=== PATIENT | female | born 1945 | race African-American/Black ===

== ENCOUNTER 2019-03-03 10:02 | Inpatient (IN) ==
[2019-03-03 12:33] LABS: Basophils % 0.4 % (0.0-0.8); Eosinophils % 0.3 % (0.00-10.9); Hematocrit 36.7 VOL% (35.7-47.0); Hemoglobin 11.7 GM/DL (12.0-16.0); Immature Granulocytes % 0.5 %; Immature Granulocytes Absolute 0.04 #; Lymphocytes # 2.3 10*3/uL (1.4-4.0); Lymphocytes % 31.1 % (21.3-54.2); Mean Corpuscular HGB Conc 31.9 GM/DL (32-36); Mean Corpuscular Volume 93.4 FL (87-102); Mean Platelet Volume 13.4 FL (9.6-12.0); Monocytes % 6.2 % (1.7-12.7); Neutrophils % 61.5 % (38.7-73.9); Platelet Count 127 T/CUMM (130-400); Red Blood Count 3.93 MC/CUMM (3.8-5.5); Red Cell Distribution Width 13.8 % (9.3-17.3); White Blood Count 7.3 T/CUMM (4-12)
[2019-03-03] MEDS ORDERED: ASPIRIN EC 325 MG TABLET PO STA (12:59)
[2019-03-03 13:00] LABS: Albumin 3.9 G/DL (3.4-5.0); Bilirubin,Total 0.9 MG/DL (0.2-1.0); Calcium 9.1 MG/DL (8.5-10.1); Osmolality,Calculated 285.5 MOS/KG (273-304); Total Protein 7.3 G/DL (6.4-8.3)
[2019-03-03] MEDS ORDERED: ASPIRIN 325 MG TABLET ONE (13:16)
[2019-03-03] MEDS ORDERED: GLUCAGON 1 MG VIAL IM PRN (14:08)
[2019-03-03] MEDS ORDERED: DEXTROSE 50% 25 GM/50 ML VIAL IV PRN (14:08)
[2019-03-03] MEDS ORDERED: ACETAMINOPHEN 325 MG TABLET PO PRN (14:08)
[2019-03-03] MEDS ORDERED: ENOXAPARIN 40 MG/0.4 ML SYRINGE SUBCUT SCH (14:30)
[2019-03-03] MEDS ORDERED: NITROGLYCERIN SL 0.4 MG TABLET SL PRN (15:33)
[2019-03-03] MEDS ORDERED: ENOXAPARIN 60 MG/0.6 ML SYRINGE SUBCUT ONE (15:45)
[2019-03-03] MEDS ORDERED: MAGNESIUM SULF RIDER 2 GM in PREMIX 1 EACH IV PRN (15:49)
[2019-03-03] MEDS ORDERED: POTASSIUM CHLORIDE RIDER 10 MEQ in PREMIX 1 EACH IV PRN (15:49)
[2019-03-03] MEDS ORDERED: hydrALAZINE 20 MG/1 ML VIAL IV PRN (15:52)
[2019-03-03] MEDS: INSULIN LISPRO 100 UNIT/ML SUBCUT SCH ×2 (17:23→20:43)
[2019-03-03] MEDS: CARVEDILOL 6.25 MG TABLET PO SCH ×2 (17:23→20:42)
[2019-03-03] MEDS: cloNIDine 0.1 MG TABLET PO SCH (20:43)
[2019-03-03] MEDS: SIMVASTATIN 40 MG TABLET PO SCH (20:43)
[2019-03-04 05:03] LABS: Basophils % 0.4 % (0.0-0.8); Eosinophils # 0.1 10*3/uL (0.0-0.87); Eosinophils % 1.6 % (0.00-10.9); Hematocrit 33.3 VOL% (35.7-47.0); Hemoglobin 10.9 GM/DL (12.0-16.0); Immature Granulocytes % 0.4 %; Immature Granulocytes Absolute 0.03 #; Lymphocytes # 3.1 10*3/uL (1.4-4.0); Lymphocytes % 44.8 % (21.3-54.2); Mean Corpuscular HGB Conc 32.7 GM/DL (32-36); Mean Corpuscular Volume 91.5 FL (87-102); Mean Platelet Volume 13.8 FL (9.6-12.0); Neutrophils % 42.8 % (38.7-73.9); Platelet Count 111 T/CUMM (130-400); Red Blood Count 3.64 MC/CUMM (3.8-5.5); Red Cell Distribution Width 13.9 % (9.3-17.3); White Blood Count 6.9 T/CUMM (4-12)
[2019-03-04 05:19] LABS: Calcium 8.9 MG/DL (8.5-10.1); Osmolality,Calculated 284.4 MOS/KG (273-304); Risk Ratio 3.68; VLDL CHOLESTEROL 50.4 MG/DL
[2019-03-04] MEDS: SODIUM CHLORIDE 0.45% 1,000 ML IV SCH ×2 (07:16→09:09)
[2019-03-04] MEDS: VALSARTAN/HCTZ 160-12.5 MG TABLET PO SCH (09:04)
[2019-03-04] MEDS: ALLOPURINOL 300 MG TABLET PO SCH (09:04)
[2019-03-04] MEDS: CARVEDILOL 6.25 MG TABLET PO SCH ×2 (09:05→21:06)
[2019-03-04] MEDS: INSULIN LISPRO 100 UNIT/ML SUBCUT SCH ×4 (09:05→22:35)
[2019-03-04] MEDS: PANTOPRAZOLE 40 MG TABLET PO SCH (09:05)
[2019-03-04] MEDS: amLODIPine 5 MG TABLET PO SCH (09:05)
[2019-03-04] MEDS: ASPIRIN EC 81 MG TABLET PO SCH (09:05)
[2019-03-04] MEDS: sitaGLIPtin 100 MG TABLET PO SCH (09:06)
[2019-03-04] MEDS ORDERED: DIAZEPAM 5 MG TABLET ONE (11:42)
[2019-03-04] MEDS ORDERED: diphenhydrAMINE CAP 50 MG CAPSULE ONE (11:42)
[2019-03-04] MEDS ORDERED: LIDOCAINE 1%/EPI INJ 20 ML VIAL ONE (11:49)
[2019-03-04] MEDS ORDERED: HEPARIN/NACL 0.9% 2 UNITS/ML 1,000 ML IV ONE (11:49)
[2019-03-04] MEDS ORDERED: DIAZEPAM 5 MG TABLET PO ONE (12:00)
[2019-03-04] MEDS ORDERED: diphenhydrAMINE CAP 25 MG CAPSULE PO ONE (12:00)
[2019-03-04] MEDS ORDERED: MIDAZOLAM 2 MG/2 ML VIAL ONE (12:03)
[2019-03-04] MEDS ORDERED: fentaNYL 100 MCG/2 ML VIAL ONE (12:03)
[2019-03-04] MEDS ORDERED: GLUCAGON 1 MG VIAL IM PRN (13:02)
[2019-03-04] MEDS ORDERED: DEXTROSE 10% 250 ML BAG IV PRN (13:02)
[2019-03-04] MEDS: ENOXAPARIN 100 MG/ML SYRINGE SUBCUT SCH (13:31)
[2019-03-04] MEDS: SIMVASTATIN 40 MG TABLET PO SCH (21:06)
[2019-03-04] MEDS: cloNIDine 0.1 MG TABLET PO SCH (21:06)
[2019-03-05] MEDS: ENOXAPARIN 100 MG/ML SYRINGE SUBCUT SCH ×2 (01:43→12:33)
[2019-03-05 05:08] LABS: Basophils % 0.4 % (0.0-0.8); Eosinophils # 0.1 10*3/uL (0.0-0.87); Eosinophils % 0.7 % (0.00-10.9); Hematocrit 32.9 VOL% (35.7-47.0); Hemoglobin 10.4 GM/DL (12.0-16.0); Immature Granulocytes % 0.5 %; Immature Granulocytes Absolute 0.04 #; Lymphocytes # 2.4 10*3/uL (1.4-4.0); Mean Corpuscular HGB Conc 31.6 GM/DL (32-36); Mean Corpuscular Volume 92.4 FL (87-102); Monocytes % 9.6 % (1.7-12.7); Neutrophils % 57.8 % (38.7-73.9); Platelet Count 114 T/CUMM (130-400); Red Blood Count 3.56 MC/CUMM (3.8-5.5); Red Cell Distribution Width 13.9 % (9.3-17.3); White Blood Count 7.6 T/CUMM (4-12)
[2019-03-05 05:37] LABS: Calcium 8.5 MG/DL (8.5-10.1); Osmolality,Calculated 284.5 MOS/KG (273-304)
[2019-03-05] MEDS: ALLOPURINOL 300 MG TABLET PO SCH (09:02)
[2019-03-05] MEDS: amLODIPine 5 MG TABLET PO SCH (09:02)
[2019-03-05] MEDS: ASPIRIN EC 81 MG TABLET PO SCH (09:02)
[2019-03-05] MEDS: sitaGLIPtin 100 MG TABLET PO SCH (09:02)
[2019-03-05] MEDS: INSULIN LISPRO 100 UNIT/ML SUBCUT SCH ×4 (09:02→21:46)
[2019-03-05] MEDS: VALSARTAN/HCTZ 160-12.5 MG TABLET PO SCH (09:02)
[2019-03-05] MEDS: PANTOPRAZOLE 40 MG TABLET PO SCH (09:03)
[2019-03-05] MEDS: CARVEDILOL 6.25 MG TABLET PO SCH ×2 (09:03→21:48)
[2019-03-05] MEDS: IBRUTINIB 280 MG PO SCH (09:06)
[2019-03-05] MEDS: SIMVASTATIN 40 MG TABLET PO SCH (21:46)
[2019-03-05] MEDS: cloNIDine 0.1 MG TABLET PO SCH (21:48)
[2019-03-06] MEDS: ENOXAPARIN 100 MG/ML SYRINGE SUBCUT SCH ×2 (03:34→13:08)
[2019-03-06 04:37] LABS: Basophils % 0.5 % (0.0-0.8); Eosinophils # 0.1 10*3/uL (0.0-0.87); Eosinophils % 1.4 % (0.00-10.9); Hematocrit 30.8 VOL% (35.7-47.0); Hemoglobin 9.8 GM/DL (12.0-16.0); Immature Granulocytes % 0.5 %; Immature Granulocytes Absolute 0.03 #; Lymphocytes # 2.5 10*3/uL (1.4-4.0); Lymphocytes % 38.1 % (21.3-54.2); Mean Corpuscular HGB Conc 31.8 GM/DL (32-36); Mean Corpuscular Volume 92.8 FL (87-102); Mean Platelet Volume 13.8 FL (9.6-12.0); Monocytes % 11.3 % (1.7-12.7); Neutrophils % 48.2 % (38.7-73.9); Platelet Count 111 T/CUMM (130-400); Red Blood Count 3.32 MC/CUMM (3.8-5.5); Red Cell Distribution Width 13.9 % (9.3-17.3); White Blood Count 6.5 T/CUMM (4-12)
[2019-03-06 05:01] LABS: Calcium 8.4 MG/DL (8.5-10.1); Osmolality,Calculated 282.5 MOS/KG (273-304)
[2019-03-06] MEDS: INSULIN LISPRO 100 UNIT/ML SUBCUT SCH ×5 (08:29→21:46)
[2019-03-06] MEDS: amLODIPine 5 MG TABLET PO SCH (08:30)
[2019-03-06] MEDS: CARVEDILOL 6.25 MG TABLET PO SCH ×2 (08:30→21:16)
[2019-03-06] MEDS: PANTOPRAZOLE 40 MG TABLET PO SCH (08:30)
[2019-03-06] MEDS: VALSARTAN/HCTZ 160-12.5 MG TABLET PO SCH (08:30)
[2019-03-06] MEDS: ASPIRIN EC 81 MG TABLET PO SCH (08:30)
[2019-03-06] MEDS: ALLOPURINOL 300 MG TABLET PO SCH (08:30)
[2019-03-06] MEDS: sitaGLIPtin 100 MG TABLET PO SCH (08:30)
[2019-03-06] MEDS: IBRUTINIB 280 MG PO SCH (08:32)
[2019-03-06] MEDS ORDERED: POTASSIUM CHLORIDE 20 MEQ TABLET PO ONE (09:00)
[2019-03-06] MEDS: cloNIDine 0.1 MG TABLET PO SCH (21:16)
[2019-03-06] MEDS: SIMVASTATIN 40 MG TABLET PO SCH (21:16)
[2019-03-07] MEDS: ENOXAPARIN 100 MG/ML SYRINGE SUBCUT SCH ×2 (02:15→15:21)
[2019-03-07 05:37] LABS: Basophils % 0.3 % (0.0-0.8); Eosinophils # 0.1 10*3/uL (0.0-0.87); Eosinophils % 1.2 % (0.00-10.9); Hematocrit 31.1 VOL% (35.7-47.0); Hemoglobin 10.1 GM/DL (12.0-16.0); Immature Granulocytes % 0.6 %; Immature Granulocytes Absolute 0.04 #; Lymphocytes # 2.5 10*3/uL (1.4-4.0); Lymphocytes % 35.6 % (21.3-54.2); Mean Corpuscular HGB Conc 32.5 GM/DL (32-36); Mean Platelet Volume 13.5 FL (9.6-12.0); Monocytes % 9.5 % (1.7-12.7); Neutrophils % 52.8 % (38.7-73.9); Platelet Count 113 T/CUMM (130-400); Red Blood Count 3.38 MC/CUMM (3.8-5.5); Red Cell Distribution Width 13.9 % (9.3-17.3); White Blood Count 6.9 T/CUMM (4-12)
[2019-03-07 06:17] LABS: Calcium 8.5 MG/DL (8.5-10.1); Osmolality,Calculated 286.4 MOS/KG (273-304)
[2019-03-07] MEDS: CARVEDILOL 6.25 MG TABLET PO SCH ×2 (08:49→21:40)
[2019-03-07] MEDS: ASPIRIN EC 81 MG TABLET PO SCH (08:49)
[2019-03-07] MEDS: ALLOPURINOL 300 MG TABLET PO SCH (08:49)
[2019-03-07] MEDS: amLODIPine 5 MG TABLET PO SCH (08:49)
[2019-03-07] MEDS: sitaGLIPtin 100 MG TABLET PO SCH (08:50)
[2019-03-07] MEDS: INSULIN LISPRO 100 UNIT/ML SUBCUT SCH ×4 (08:50→21:48)
[2019-03-07] MEDS: IBRUTINIB 280 MG PO SCH (08:52)
[2019-03-07] MEDS: VALSARTAN/HCTZ 160-12.5 MG TABLET PO SCH (09:35)
[2019-03-07] MEDS: PANTOPRAZOLE 40 MG TABLET PO SCH (09:36)
[2019-03-07] MEDS: SIMVASTATIN 40 MG TABLET PO SCH (21:40)
[2019-03-07] MEDS: cloNIDine 0.1 MG TABLET PO SCH (21:40)
[2019-03-08 06:25] LABS: Basophils % 0.6 % (0.0-0.8); Eosinophils # 0.1 10*3/uL (0.0-0.87); Eosinophils % 1.2 % (0.00-10.9); Hematocrit 32.2 VOL% (35.7-47.0); Hemoglobin 10.5 GM/DL (12.0-16.0); Immature Granulocytes % 0.4 %; Immature Granulocytes Absolute 0.03 #; Lymphocytes # 2.9 10*3/uL (1.4-4.0); Lymphocytes % 41.4 % (21.3-54.2); Mean Corpuscular HGB Conc 32.6 GM/DL (32-36); Mean Corpuscular Volume 91.7 FL (87-102); Mean Platelet Volume 14.1 FL (9.6-12.0); Monocytes % 10.6 % (1.7-12.7); Neutrophils % 45.8 % (38.7-73.9); Platelet Count 123 T/CUMM (130-400); Red Blood Count 3.51 MC/CUMM (3.8-5.5); Red Cell Distribution Width 14.1 % (9.3-17.3); White Blood Count 6.9 T/CUMM (4-12)
[2019-03-08] MEDS: ENOXAPARIN 100 MG/ML SYRINGE SUBCUT SCH ×2 (06:26→13:49)
[2019-03-08 06:52] LABS: Calcium 8.5 MG/DL (8.5-10.1); Osmolality,Calculated 285.5 MOS/KG (273-304)
[2019-03-08] MEDS: INSULIN LISPRO 100 UNIT/ML SUBCUT SCH ×4 (08:40→21:39)
[2019-03-08] MEDS: CARVEDILOL 6.25 MG TABLET PO SCH ×2 (08:41→21:38)
[2019-03-08] MEDS: PANTOPRAZOLE 40 MG TABLET PO SCH (08:41)
[2019-03-08] MEDS: ASPIRIN EC 81 MG TABLET PO SCH (08:41)
[2019-03-08] MEDS: sitaGLIPtin 100 MG TABLET PO SCH (08:41)
[2019-03-08] MEDS: ALLOPURINOL 300 MG TABLET PO SCH (08:41)
[2019-03-08] MEDS: VALSARTAN/HCTZ 160-12.5 MG TABLET PO SCH (08:41)
[2019-03-08] MEDS: amLODIPine 5 MG TABLET PO SCH (08:42)
[2019-03-08] MEDS: IBRUTINIB 280 MG PO SCH (08:44)
[2019-03-08] MEDS: cloNIDine 0.1 MG TABLET PO SCH (21:38)
[2019-03-08] MEDS: SIMVASTATIN 40 MG TABLET PO SCH (21:38)
[2019-03-09 05:33] LABS: Basophils % 0.5 % (0.0-0.8); Eosinophils # 0.1 10*3/uL (0.0-0.87); Eosinophils % 1.7 % (0.00-10.9); Hematocrit 30.8 VOL% (35.7-47.0); Hemoglobin 10.2 GM/DL (12.0-16.0); Immature Granulocytes % 0.3 %; Immature Granulocytes Absolute 0.02 #; Lymphocytes # 2.1 10*3/uL (1.4-4.0); Lymphocytes % 36.3 % (21.3-54.2); Mean Corpuscular HGB Conc 33.1 GM/DL (32-36); Mean Corpuscular Volume 92.5 FL (87-102); Mean Platelet Volume 13.6 FL (9.6-12.0); Monocytes % 11.6 % (1.7-12.7); Neutrophils % 49.6 % (38.7-73.9); Platelet Count 125 T/CUMM (130-400); Red Blood Count 3.33 MC/CUMM (3.8-5.5); Red Cell Distribution Width 13.8 % (9.3-17.3); White Blood Count 5.8 T/CUMM (4-12)
[2019-03-09 05:59] LABS: Calcium 8.7 MG/DL (8.5-10.1); Osmolality,Calculated 285.5 MOS/KG (273-304)
[2019-03-09] MEDS ORDERED: CEFUROXIME INJ 1,500 MG in SYRINGE 1 EACH IV ONE (08:17)
[2019-03-09] MEDS ORDERED: DEXTROSE 50% 25 GM/50 ML VIAL IV PRN (08:17)
[2019-03-09] MEDS ORDERED: GLUCAGON 1 MG VIAL IM PRN (08:17)
[2019-03-09] MEDS: INSULIN LISPRO 100 UNIT/ML SUBCUT SCH ×4 (08:34→21:00)
[2019-03-09] MEDS: ALLOPURINOL 300 MG TABLET PO SCH (08:39)
[2019-03-09] MEDS: VALSARTAN/HCTZ 160-12.5 MG TABLET PO SCH (08:39)
[2019-03-09] MEDS: PANTOPRAZOLE 40 MG TABLET PO SCH (08:39)
[2019-03-09] MEDS: sitaGLIPtin 100 MG TABLET PO SCH (08:39)
[2019-03-09] MEDS: amLODIPine 5 MG TABLET PO SCH (08:39)
[2019-03-09] MEDS: CHLORHEXIDINE 4% SOLN 118 ML BOTTLE TOP SCH ×3 (08:39→21:06)
[2019-03-09] MEDS: ASPIRIN EC 81 MG TABLET PO SCH (08:39)
[2019-03-09] MEDS: CARVEDILOL 6.25 MG TABLET PO SCH ×2 (08:39→21:00)
[2019-03-09] MEDS: IBRUTINIB 280 MG PO SCH (08:41)
[2019-03-09] MEDS: SODIUM CHLORIDE 0.9% 1,000 ML IV SCH (08:42)
[2019-03-09 08:49] LABS: ABG Base Excess -0.1 MMOL/L (-2.5-2.5); ABG HCO3 24.3 MMOL/L (20-26); ABG PCO2 37.4 MM HG (35-48); ABG PH 7.418 (7.35-7.45); ABG TCO2 21.8 MMOL/L (23-27); Allen Test Positive; Pt O2 Delivery Device Room Air
[2019-03-09] MEDS: CHLORHEXIDINE 0.12% ORAL RINSE 60 ML BOTTLE SWISH/SPIT SCH ×2 (11:14→21:06)
[2019-03-09] MEDS ORDERED: NF- (Dulaglutide [Trulicity] 1.5 MG) SUBCUT SCH (15:56)
[2019-03-09] MEDS: cloNIDine 0.1 MG TABLET PO SCH (21:00)
[2019-03-09] MEDS: SIMVASTATIN 40 MG TABLET PO SCH (21:00)
[2019-03-10] MEDS ORDERED: VANCOMYCIN 1,000 MG VIAL ONE (04:21)
[2019-03-10] MEDS ORDERED: PAPAVERINE 60 MG/2 ML VIAL ONE (04:21)
[2019-03-10] MEDS ORDERED: HEPARIN/NACL 0.9% 2 UNITS/ML 500 ML IV ONE (06:01)
[2019-03-10] MEDS ORDERED: EPINEPHrine 1 MG/ML VIAL ONE (06:02)
[2019-03-10] MEDS ORDERED: MIDAZOLAM 10 MG/2 ML VIAL ONE (06:02)
[2019-03-10 06:24] LABS: Osmolality,Calculated 282.7 MOS/KG (273-304)
[2019-03-10] MEDS ORDERED: DIAZEPAM 5 MG TABLET PO ONE (06:30)
[2019-03-10] MEDS ORDERED: FAMOTIDINE 20 MG TABLET PO ONE (06:30)
[2019-03-10] MEDS ORDERED: CEFUROXIME INJ 1,500 MG in SYRINGE 1 EACH IV ONE (07:00)
[2019-03-10 07:42] LABS: ABG Base Excess -0.2 MMOL/L (-2.5-2.5); ABG HCO3 24.3 MMOL/L (20-26); ABG PCO2 38.8 MM HG (35-48); ABG PH 7.406 (7.35-7.45); ABG TCO2 22.2 MMOL/L (23-27); Glucose Heart Surgery 169 MG/DL (74-106); Hematocrit Heart Surgery 30.5 PERCENT (37-47); Hemoglobin Heart Surgery 9.9 G/DL (12.0-16.0); Ionized Calcium Arterial 1.18 MMOL/L (1.21-1.46); PCO2 Patient Temp Arterial 38.8 MMHG; PH Patient Temp Arterial 7.406; Patient Temperature 37 CELCIUS; Potassium Heart/CVR 3.7 MMOL/L (3.5-5.1); Sodium Heart/CVR 139 MMOL/L (135-145)
[2019-03-10 08:05] LABS: Apearance,Urine CLEAR (Clear); Bacteria,Urine Occasional /HPF (Few); Bilirubin,Urine Negative (Negative); Blood, Urine Moderate mg/dL (Negative); Glucose,Urine (UA) Negative (Negative); Ketones,Urine Negative (Negative); Nitrite,Urine Negative (Negative); Protein,Urine Negative; RBC,Urine 1 /HPF (0-4); Squamous Epithelial Cell,Urine Occasional /HPF (0-10); Urine Color Straw (Yellow); Urine Specific Gravity 1.006 (1.001-1.035); Urine Urobilinogen < 2.0 EU/DL (0.2-1.0); WBC,Urine <1 /HPF (0-6)
[2019-03-10 09:16] LABS: PCO2 Patient Temp Venous 31.5 MM HG; PH Patient Temp Venous 7.488; Potassium Heart/CVR 4.3 MMOL/L (3.5-5.1); VBG Base Excess 0.8 MEQ/L (0-4); VBG Oxygen Saturation 78.6 %; VBG PCO2 34.7 MMHG (41-51); VBG PH 7.458; VBG PO2 40.2 MMHG (17-40)
[2019-03-10 09:18] LABS: Hemoglobin Heart Surgery 6.4 G/DL (12.0-16.0)
[2019-03-10] MEDS ORDERED: PHENYLEPHRINE DRIP 40 MG/250 ML PREMIX IV ONE (09:18)
[2019-03-10 09:50] LABS: Hematocrit Heart Surgery 21.8 PERCENT (37-47); PCO2 Patient Temp Venous 28.1 MM HG; PH Patient Temp Venous 7.526; PO2 Patient Temp Venous 36.4 MM HG; Potassium Heart/CVR 4.1 MMOL/L (3.5-5.1); VBG HCO3 25.1 MEQ/L (24-28); VBG Oxygen Saturation 84.6 %; VBG PCO2 32.5 MMHG (41-51); VBG PH 7.481; VBG PO2 44.7 MMHG (17-40)
[2019-03-10 10:20] LABS: Hematocrit Heart Surgery 23.4 PERCENT (37-47); Hemoglobin Heart Surgery 7.5 G/DL (12.0-16.0); PCO2 Patient Temp Venous 33.9 MM HG; PH Patient Temp Venous 7.451; PO2 Patient Temp Venous 34.8 MM HG; Potassium Heart/CVR 4.6 MMOL/L (3.5-5.1); VBG HCO3 24.1 MEQ/L (24-28); VBG Oxygen Saturation 68.9 %; VBG PCO2 33.9 MMHG (41-51); VBG PH 7.451; VBG PO2 34.8 MMHG (17-40)
[2019-03-10] MEDS ORDERED: ALBUMIN 25% 25 GM/100 ML VIAL IV ONE (10:38)
[2019-03-10] MEDS ORDERED: SODIUM BICARBONATE 50 MEQ/50 ML VIAL IV ONE (10:38)
[2019-03-10] MEDS ORDERED: MANNITOL 100 GM/500 ML BAG IV ONE (10:38)
[2019-03-10] MEDS ORDERED: DEXTROSE 5% KCL 20 MEQ 20 MEQ/1,000 ML BAG IV ONE (10:38)
[2019-03-10] MEDS ORDERED: PROTAMINE SULFATE 50 MG/5 ML VIAL IV ONE (10:39)
[2019-03-10] MEDS ORDERED: PROTAMINE SULFATE 250 MG/25 ML VIAL IV ONE (10:39)
[2019-03-10] MEDS ORDERED: methylPREDNISolone SOD SUC 1,000 MG/8 ML VIAL ONE (10:39)
[2019-03-10] MEDS ORDERED: HEPARIN 10,000 UNIT/10 ML VIAL ONE (10:39)
[2019-03-10] MEDS ORDERED: FUROSEMIDE 20 MG/2 ML VIAL ONE (10:39)
[2019-03-10] MEDS ORDERED: MAGNESIUM SULFATE 5 GM/10 ML VIAL IV ONE (10:39)
[2019-03-10] MEDS ORDERED: POTASSIUM CHLORIDE 20 MEQ/10 ML VIAL ONE (10:39)
[2019-03-10 10:53] LABS: ABG Base Excess -1.8 MMOL/L (-2.5-2.5); ABG PCO2 35.1 MM HG (35-48); ABG PH 7.412 (7.35-7.45); ABG TCO2 20.6 MMOL/L (23-27); Glucose Heart Surgery 292 MG/DL (74-106); Hematocrit Heart Surgery 27.5 PERCENT (37-47); Hemoglobin Heart Surgery 8.9 G/DL (12.0-16.0); Ionized Calcium Arterial 1.22 MMOL/L (1.21-1.46); PCO2 Patient Temp Arterial 35.1 MMHG; PH Patient Temp Arterial 7.412; Patient Temperature 37 CELCIUS; Potassium Heart/CVR 4.1 MMOL/L (3.5-5.1); Sodium Heart/CVR 134 MMOL/L (135-145)
[2019-03-10] MEDS ORDERED: VECURONIUM 10 MG VIAL IV ONE (11:48)
[2019-03-10] MEDS ORDERED: PHENYLEPHRINE DRIP 20 MG/250 ML PREMIX IV ONE (11:48)
[2019-03-10] MEDS ORDERED: CALCIUM CHLORIDE 1,000 MG/10 ML VIAL IV ONE (11:48)
[2019-03-10] MEDS ORDERED: SODIUM CHLORIDE 0.9% 100 ML IV ONE (11:49)
[2019-03-10] MEDS ORDERED: SODIUM CHLORIDE 0.9% 250 ML IV ONE (11:49)
[2019-03-10] MEDS ORDERED: AMINOCAPROIC ACID 5,000 MG/20 ML VIAL ONE (11:49)
[2019-03-10] MEDS ORDERED: SODIUM CHLORIDE 0.9% 1,000 ML IV ONE (11:49)
[2019-03-10] MEDS ORDERED: LACTATED RINGERS 1,000 ML IV ONE (11:49)
[2019-03-10] MEDS ORDERED: ALBUMIN 5% 12.5 GM in PREMIX 1 EACH IV PRN (11:50)
[2019-03-10] MEDS ORDERED: MIDAZOLAM 10 MG/2 ML VIAL IV PRN (11:50)
[2019-03-10] MEDS ORDERED: MAGNESIUM SULF RIDER 4 GM in PREMIX 1 EACH IV PRN (11:50)
[2019-03-10] MEDS ORDERED: CALCIUM CHLORIDE 1,000 MG/10 ML SYRINGE IV PRN (11:50)
[2019-03-10] MEDS ORDERED: MAGNESIUM SULF RIDER 2 GM in PREMIX 1 EACH IV PRN (11:50)
[2019-03-10] MEDS ORDERED: PHENYLEPHRINE DRIP 40 MG/250 ML PREMIX IV PRN (11:50)
[2019-03-10] MEDS ORDERED: VECURONIUM 10 MG VIAL IV PRN ×2 (11:50)
[2019-03-10] MEDS ORDERED: DEXTROSE 50% 25 GM/50 ML VIAL IV PRN ×2 (11:50)
[2019-03-10] MEDS ORDERED: MORPHINE 10 MG/1 ML VIAL IV PRN (11:50)
[2019-03-10] MEDS ORDERED: ACETAMINOPHEN 650 MG SUPP RECTAL PRN (11:50)
[2019-03-10] MEDS ORDERED: INSULIN REGULAR 100 UNIT/ML IV ONE (11:50)
[2019-03-10] MEDS ORDERED: NITROPRUSSIDE 100 MG in DEXTROSE 5% 250 ML IV PRN (11:50)
[2019-03-10] MEDS ORDERED: MORPHINE 4 MG/1 ML VIAL IV PRN (11:50)
[2019-03-10] MEDS ORDERED: MIDAZOLAM 2 MG/2 ML VIAL IV PRN (11:50)
[2019-03-10] MEDS ORDERED: ONDANSETRON 4 MG/2 ML VIAL IV PRN (11:50)
[2019-03-10] MEDS ORDERED: LACTATED RINGERS 250 ML IV PRN (11:50)
[2019-03-10] MEDS: SODIUM CHLORIDE 0.9% 1,000 ML IV SCH (11:51)
[2019-03-10] MEDS: INSULIN LISPRO 100 UNIT/ML SUBCUT SCH (11:51)
[2019-03-10] MEDS: sitaGLIPtin 100 MG TABLET PO SCH (11:52)
[2019-03-10] MEDS: VALSARTAN/HCTZ 160-12.5 MG TABLET PO SCH (11:52)
[2019-03-10] MEDS: amLODIPine 5 MG TABLET PO SCH (11:52)
[2019-03-10] MEDS: IBRUTINIB 280 MG PO SCH (11:52)
[2019-03-10] MEDS: CARVEDILOL 6.25 MG TABLET PO SCH (11:52)
[2019-03-10] MEDS: ASPIRIN EC 81 MG TABLET PO SCH (11:52)
[2019-03-10] MEDS: ALLOPURINOL 300 MG TABLET PO SCH (11:53)
[2019-03-10] MEDS: CHLORHEXIDINE 0.12% ORAL RINSE 60 ML BOTTLE SWISH/SPIT SCH (11:53)
[2019-03-10] MEDS: PANTOPRAZOLE 40 MG TABLET PO SCH (11:53)
[2019-03-10] MEDS ORDERED: SODIUM CHLORIDE 0.45% 1,000 ML IV SCH ×2 (12:00)
[2019-03-10 12:05] LABS: Basophils % 0.2 % (0.0-0.8); Eosinophils # 0.1 10*3/uL (0.0-0.87); Eosinophils % 0.4 % (0.00-10.9); Hematocrit 28.7 VOL% (35.7-47.0); Hemoglobin 9.3 GM/DL (12.0-16.0); Immature Granulocytes Absolute 0.12 #; Lymphocytes # 1.5 10*3/uL (1.4-4.0); Lymphocytes % 12.5 % (21.3-54.2); Mean Corpuscular HGB Conc 32.4 GM/DL (32-36); Mean Corpuscular Volume 90.8 FL (87-102); Mean Platelet Volume 13.3 FL (9.6-12.0); Monocytes % 5.1 % (1.7-12.7); Neutrophils % 80.8 % (38.7-73.9); Platelet Count 110 T/CUMM (130-400); Red Blood Count 3.16 MC/CUMM (3.8-5.5); Red Cell Distribution Width 13.6 % (9.3-17.3)
[2019-03-10 12:06] LABS: ABG Base Excess -2.1 MMOL/L (-2.5-2.5); ABG HCO3 22.6 MMOL/L (20-26); ABG Oxygen Saturation 99.5 % (95-100); ABG PH 7.407 (7.35-7.45); ABG TCO2 20.1 MMOL/L (23-27); Glucose Heart Surgery 277 MG/DL (74-106); Hematocrit Heart Surgery 29.8 PERCENT (37-47); Hemoglobin Heart Surgery 9.6 G/DL (12.0-16.0); Potassium Heart/CVR 3.9 MMOL/L (3.5-5.1)
[2019-03-10 12:14] LABS: PT Patient Result 11.3 SECS; Partial Thromboplastin Time 24.7 SECS (0-40)
[2019-03-10 12:29] LABS: Albumin 3.1 G/DL (3.4-5.0); Bilirubin,Total 1.3 MG/DL (0.2-1.0); Osmolality,Calculated 289.7 MOS/KG (273-304)
[2019-03-10] MEDS: POTASSIUM CHLORIDE RIDER 20 MEQ in PREMIX 1 EACH IV PRN ×5 (12:52→23:14)
[2019-03-10] MEDS: KETOROLAC 30 MG/1 ML VIAL IV SCH ×2 (12:55→17:12)
[2019-03-10 13:00] LABS: CKMB % 4.9 %
[2019-03-10 13:06] LABS: Troponin I 4.63 NG/ML (0.00-0.045)
[2019-03-10] MEDS: INSULIN REGULAR DRIP 100 ML IV SCH ×2 (13:25→22:54)
[2019-03-10] MEDS: POTASSIUM CHLORIDE RIDER 10 MEQ in PREMIX 1 EACH IV PRN ×2 (13:29→15:39)
[2019-03-10] MEDS: LACTATED RINGERS 1,000 ML IV PRN ×3 (13:32→17:00)
[2019-03-10 14:19] LABS: ABG Base Excess -1.9 MMOL/L (-2.5-2.5); ABG HCO3 22.8 MMOL/L (20-26); ABG Oxygen Saturation 99.1 % (95-100); ABG PCO2 31.9 MM HG (35-48); ABG PH 7.436 (7.35-7.45); ABG TCO2 19.1 MMOL/L (23-27); Glucose Heart Surgery 294 MG/DL (74-106); Hematocrit Heart Surgery 35.4 PERCENT (37-47); Hemoglobin Heart Surgery 11.5 G/DL (12.0-16.0); Potassium Heart/CVR 3.9 MMOL/L (3.5-5.1)
[2019-03-10] MEDS: INSULIN REGULAR 100 UNIT/ML IV PRN ×2 (14:31→21:20)
[2019-03-10 16:57] LABS: ABG HCO3 21.9 MMOL/L (20-26); ABG Oxygen Saturation 98.9 % (95-100); ABG PCO2 35.5 MM HG (35-48); ABG PH 7.389 (7.35-7.45); ABG TCO2 19.3 MMOL/L (23-27); Glucose Heart Surgery 210 MG/DL (74-106); Hematocrit Heart Surgery 32.8 PERCENT (37-47); Hemoglobin Heart Surgery 10.6 G/DL (12.0-16.0); Potassium Heart/CVR 3.7 MMOL/L (3.5-5.1)
[2019-03-10 19:28] LABS: ABG Base Excess -2.6 MMOL/L (-2.5-2.5); ABG HCO3 22.3 MMOL/L (20-26); ABG Oxygen Saturation 98.9 % (95-100); ABG PCO2 35.1 MM HG (35-48); ABG PH 7.398 (7.35-7.45); ABG TCO2 19.3 MMOL/L (23-27); Glucose Heart Surgery 159 MG/DL (74-106); Hematocrit Heart Surgery 35.3 PERCENT (37-47); Hemoglobin Heart Surgery 11.5 G/DL (12.0-16.0)
[2019-03-10] MEDS: CEFUROXIME INJ 1,500 MG in SYRINGE 1 EACH IV SCH (19:31)
[2019-03-10 19:49] LABS: CKMB % 3.6 %
[2019-03-10] MEDS ORDERED: CHLORHEXIDINE 0.12% ORAL RINSE 60 ML BOTTLE SWISH/SPIT SCH (21:00)
[2019-03-11] MEDS ORDERED: FUROSEMIDE 40 MG/4 ML VIAL IV ONE (00:01)
[2019-03-11] MEDS: KETOROLAC 30 MG/1 ML VIAL IV SCH ×2 (00:21→06:32)
[2019-03-11 03:10] LABS: Basophils % 0.1 % (0.0-0.8); Hemoglobin 10.5 GM/DL (12.0-16.0); Immature Granulocytes % 0.6 %; Immature Granulocytes Absolute 0.11 #; Lymphocytes # 1.9 10*3/uL (1.4-4.0); Lymphocytes % 10.7 % (21.3-54.2); Mean Corpuscular HGB Conc 32.8 GM/DL (32-36); Mean Corpuscular Volume 88.6 FL (87-102); Neutrophils % 83.6 % (38.7-73.9); Platelet Count 142 T/CUMM (130-400); Red Blood Count 3.61 MC/CUMM (3.8-5.5); Red Cell Distribution Width 15.9 % (9.3-17.3); White Blood Count 17.7 T/CUMM (4-12)
[2019-03-11 03:16] LABS: ABG Base Excess -1.3 MMOL/L (-2.5-2.5); ABG HCO3 23.4 MMOL/L (20-26); ABG TCO2 19.3 MMOL/L (23-27); Glucose Heart Surgery 109 MG/DL (74-106); Potassium Heart/CVR 4.2 MMOL/L (3.5-5.1)
[2019-03-11 03:35] LABS: Albumin 3.2 G/DL (3.4-5.0); Bilirubin,Direct 0.25 MG/DL (0.0-0.20); CKMB % 2.4 %; Calcium 8.5 MG/DL (8.5-10.1); Osmolality,Calculated 285.3 MOS/KG (273-304); Total Protein 5.9 G/DL (6.4-8.3)
[2019-03-11 03:36] LABS: Troponin I 3.27 NG/ML (0.00-0.045)
[2019-03-11 04:16] LABS: ABG Base Excess -0.8 MMOL/L (-2.5-2.5); ABG HCO3 24.2 MMOL/L (20-26); ABG Oxygen Saturation 95.7 % (95-100); ABG PCO2 41.2 MM HG (35-48); ABG PH 7.386 (7.35-7.45); ABG PO2 83.5 MM HG (80-95); ABG TCO2 25.4 MMOL/L (23-27); Glucose Heart Surgery 89 MG/DL (74-106); Hemoglobin Heart Surgery 11.4 G/DL (12.0-16.0)
[2019-03-11] MEDS: POTASSIUM CHLORIDE RIDER 20 MEQ in PREMIX 1 EACH IV PRN (04:48)
[2019-03-11 05:13] LABS: ABG Base Excess -1.6 MMOL/L (-2.5-2.5); ABG HCO3 23.1 MMOL/L (20-26); ABG Oxygen Saturation 97.7 % (95-100); ABG PCO2 42.4 MM HG (35-48); ABG PH 7.358 (7.35-7.45); ABG TCO2 21.6 MMOL/L (23-27); Glucose Heart Surgery 91 MG/DL (74-106); Hematocrit Heart Surgery 32.3 PERCENT (37-47); Hemoglobin Heart Surgery 10.4 G/DL (12.0-16.0); Potassium Heart/CVR 4.4 MMOL/L (3.5-5.1)
[2019-03-11] MEDS ORDERED: MAGNESIUM SULF RIDER 4 GM in PREMIX 1 EACH IV PRN (07:35)
[2019-03-11] MEDS ORDERED: GLUCAGON 1 MG VIAL IM PRN ×2 (07:35)
[2019-03-11] MEDS ORDERED: oxyCODONE/ACETAMINOPHEN 5-325 MG TABLET PO PRN (07:35)
[2019-03-11] MEDS ORDERED: ONDANSETRON 4 MG/2 ML VIAL IV PRN (07:35)
[2019-03-11] MEDS ORDERED: ACETAMINOPHEN 325 MG TABLET PO PRN (07:35)
[2019-03-11] MEDS ORDERED: MORPHINE 4 MG/1 ML VIAL IV PRN (07:35)
[2019-03-11] MEDS ORDERED: MAGNESIUM SULF RIDER 2 GM in PREMIX 1 EACH IV PRN (07:35)
[2019-03-11] MEDS ORDERED: ALUMINUM/MAGNES/SIMETH MAX STR 30 ML UDCUP PO PRN (07:35)
[2019-03-11] MEDS ORDERED: DEXTROSE 50% 25 GM/50 ML VIAL IV PRN ×2 (07:35)
[2019-03-11] MEDS: INSULIN REGULAR 100 UNIT/ML SUBCUT SCH ×4 (08:00→21:45)
[2019-03-11] MEDS: CEFUROXIME INJ 1,500 MG in SYRINGE 1 EACH IV SCH ×2 (08:27→23:06)
[2019-03-11] MEDS: ASPIRIN EC 325 MG TABLET PO SCH (08:28)
[2019-03-11] MEDS: CARVEDILOL 3.125 MG TABLET PO SCH ×2 (08:28→21:11)
[2019-03-11] MEDS: ALLOPURINOL 300 MG TABLET PO SCH (08:28)
[2019-03-11] MEDS: DOCUSATE SODIUM 100 MG CAPSULE PO SCH (08:28)
[2019-03-11] MEDS: sitaGLIPtin 100 MG TABLET PO SCH (08:28)
[2019-03-11] MEDS: SODIUM CHLOR 0.45% KCL 20 MEQ 20 MEQ/1,000 ML BAG IV SCH (08:29)
[2019-03-11] MEDS: PANTOPRAZOLE 40 MG TABLET PO SCH (08:29)
[2019-03-11] MEDS: ASCORBIC ACID 500 MG TABLET PO SCH ×2 (08:29→21:11)
[2019-03-11] MEDS: FERROUS SULFATE 325 MG TABLET PO SCH (08:29)
[2019-03-11] MEDS: CHLORHEXIDINE 0.12% ORAL RINSE 60 ML BOTTLE SWISH/SPIT SCH ×2 (08:29→21:11)
[2019-03-11] MEDS ORDERED: VALSARTAN/HCTZ 160-12.5 MG TABLET PO SCH (09:00)
[2019-03-11] MEDS: KETOROLAC 15 MG/1 ML VIAL IV SCH ×2 (11:52→19:01)
[2019-03-11] MEDS: ZALEPLON 5 MG CAPSULE PO PRN (21:11)
[2019-03-11] MEDS: cloNIDine 0.1 MG TABLET PO SCH (21:11)
[2019-03-11] MEDS: SIMVASTATIN 40 MG TABLET PO SCH (21:11)
[2019-03-12] MEDS: KETOROLAC 15 MG/1 ML VIAL IV SCH ×2 (01:29→10:30)
[2019-03-12] MEDS: INSULIN REGULAR 100 UNIT/ML SUBCUT SCH ×6 (01:39→23:20)
[2019-03-12 05:06] LABS: Basophils % 0.1 % (0.0-0.8); Hemoglobin 8.8 GM/DL (12.0-16.0); Immature Granulocytes % 0.6 %; Lymphocytes # 1.5 10*3/uL (1.4-4.0); Lymphocytes % 9.1 % (21.3-54.2); Mean Corpuscular HGB Conc 31.4 GM/DL (32-36); Mean Corpuscular Volume 91.2 FL (87-102); Mean Platelet Volume 14.1 FL (9.6-12.0); Monocytes % 10.3 % (1.7-12.7); NRBC # 0.02 10*3/uL; Neutrophils % 79.9 % (38.7-73.9); Platelet Count 120 T/CUMM (130-400); Red Blood Count 3.07 MC/CUMM (3.8-5.5); Red Cell Distribution Width 16.2 % (9.3-17.3); White Blood Count 16.2 T/CUMM (4-12)
[2019-03-12] MEDS ORDERED: FUROSEMIDE 40 MG/4 ML VIAL IV ONE (06:00)
[2019-03-12 06:09] LABS: Albumin 2.9 G/DL (3.4-5.0); Bilirubin,Direct 0.24 MG/DL (0.0-0.20); Bilirubin,Indirect 0.7 MG/DL (0.0-1.0); Bilirubin,Total 0.9 MG/DL (0.2-1.0); CKMB % 0.8 %; Calcium 8.4 MG/DL (8.5-10.1); Osmolality,Calculated 293.5 MOS/KG (273-304)
[2019-03-12 06:13] LABS: Troponin I 3.26 NG/ML (0.00-0.045)
[2019-03-12] MEDS: ALLOPURINOL 300 MG TABLET PO SCH (09:34)
[2019-03-12] MEDS: PANTOPRAZOLE 40 MG TABLET PO SCH (09:35)
[2019-03-12] MEDS: ASPIRIN EC 325 MG TABLET PO SCH (09:35)
[2019-03-12] MEDS: ASCORBIC ACID 500 MG TABLET PO SCH ×2 (09:36→21:57)
[2019-03-12] MEDS: FERROUS SULFATE 325 MG TABLET PO SCH (09:36)
[2019-03-12] MEDS: sitaGLIPtin 100 MG TABLET PO SCH (09:37)
[2019-03-12] MEDS: DOCUSATE SODIUM 100 MG CAPSULE PO SCH (09:37)
[2019-03-12] MEDS: CARVEDILOL 3.125 MG TABLET PO SCH ×2 (09:37→21:56)
[2019-03-12] MEDS: CHLORHEXIDINE 0.12% ORAL RINSE 60 ML BOTTLE SWISH/SPIT SCH ×2 (10:15→21:56)
[2019-03-12] MEDS: SODIUM CHLOR 0.45% KCL 20 MEQ 20 MEQ/1,000 ML BAG IV SCH (10:30)
[2019-03-12] MEDS: cloNIDine 0.1 MG TABLET PO SCH (21:56)
[2019-03-12] MEDS: SIMVASTATIN 40 MG TABLET PO SCH (21:56)
[2019-03-13] MEDS: INSULIN REGULAR 100 UNIT/ML SUBCUT SCH ×5 (00:55→21:36)
[2019-03-13 06:40] LABS: Basophils % 0.2 % (0.0-0.8); Eosinophils # 0.2 10*3/uL (0.0-0.87); Eosinophils % 1.2 % (0.00-10.9); Hematocrit 27.9 VOL% (35.7-47.0); Hemoglobin 8.8 GM/DL (12.0-16.0); Immature Granulocytes % 0.7 %; Immature Granulocytes Absolute 0.09 #; Lymphocytes # 2.3 10*3/uL (1.4-4.0); Lymphocytes % 18.6 % (21.3-54.2); Mean Corpuscular HGB Conc 31.5 GM/DL (32-36); Mean Platelet Volume 13.7 FL (9.6-12.0); Monocytes % 13.3 % (1.7-12.7); NRBC # 0.02 10*3/uL; Platelet Count 131 T/CUMM (130-400); Red Cell Distribution Width 15.9 % (9.3-17.3); White Blood Count 12.1 T/CUMM (4-12)
[2019-03-13 07:18] LABS: Albumin 2.8 G/DL (3.4-5.0); Bilirubin,Direct 0.25 MG/DL (0.0-0.20); Bilirubin,Indirect 0.9 MG/DL (0.0-1.0); Bilirubin,Total 1.1 MG/DL (0.2-1.0); CKMB % 0.7 %; Calcium 8.5 MG/DL (8.5-10.1); Osmolality,Calculated 293.5 MOS/KG (273-304); Total Protein 6.2 G/DL (6.4-8.3)
[2019-03-13 07:21] LABS: Troponin I 1.22 NG/ML (0.00-0.045)
[2019-03-13] MEDS: sitaGLIPtin 100 MG TABLET PO SCH (08:50)
[2019-03-13] MEDS: ASCORBIC ACID 500 MG TABLET PO SCH ×2 (08:50→21:34)
[2019-03-13] MEDS: CARVEDILOL 3.125 MG TABLET PO SCH ×2 (08:50→21:35)
[2019-03-13] MEDS: PANTOPRAZOLE 40 MG TABLET PO SCH (08:51)
[2019-03-13] MEDS: ASPIRIN EC 325 MG TABLET PO SCH (08:51)
[2019-03-13] MEDS: FERROUS SULFATE 325 MG TABLET PO SCH (08:51)
[2019-03-13] MEDS: ALLOPURINOL 300 MG TABLET PO SCH (08:51)
[2019-03-13] MEDS: DOCUSATE SODIUM 100 MG CAPSULE PO SCH (08:51)
[2019-03-13] MEDS: LISINOPRIL 5 MG TABLET PO SCH (09:45)
[2019-03-13] MEDS: FUROSEMIDE 40 MG TABLET PO SCH (09:45)
[2019-03-13] MEDS: CHLORHEXIDINE 0.12% ORAL RINSE 60 ML BOTTLE SWISH/SPIT SCH ×2 (09:46→21:38)
[2019-03-13] MEDS ORDERED: AMIODARONE INJ 150 MG in DEXTROSE 5% 100 ML IV ONE (15:22)
[2019-03-13] MEDS ORDERED: dilTIAZem Drip 125 MG/125 ML PREMIX IV SCH (15:30)
[2019-03-13] MEDS ORDERED: AMIODARONE INJ 450 MG in DEXTROSE 5% 241 ML IV SCH ×2 (15:30→23:45)
[2019-03-13] MEDS: ZALEPLON 5 MG CAPSULE PO PRN (21:35)
[2019-03-13] MEDS: SIMVASTATIN 40 MG TABLET PO SCH (21:35)
[2019-03-13] MEDS: cloNIDine 0.1 MG TABLET PO SCH (21:35)
[2019-03-14] MEDS: sitaGLIPtin 100 MG TABLET PO SCH (09:59)
[2019-03-14] MEDS: ASPIRIN EC 325 MG TABLET PO SCH (09:59)
[2019-03-14] MEDS: DOCUSATE SODIUM 100 MG CAPSULE PO SCH (09:59)
[2019-03-14] MEDS: FERROUS SULFATE 325 MG TABLET PO SCH (09:59)
[2019-03-14] MEDS: AMIODARONE 200 MG TABLET PO SCH ×2 (09:59→21:25)
[2019-03-14] MEDS: CARVEDILOL 3.125 MG TABLET PO SCH ×2 (09:59→21:25)
[2019-03-14] MEDS: PANTOPRAZOLE 40 MG TABLET PO SCH (09:59)
[2019-03-14] MEDS: ASCORBIC ACID 500 MG TABLET PO SCH ×2 (09:59→21:25)
[2019-03-14] MEDS: ALLOPURINOL 300 MG TABLET PO SCH (09:59)
[2019-03-14] MEDS: LISINOPRIL 5 MG TABLET PO SCH (09:59)
[2019-03-14] MEDS: MAGNESIUM HYDROXIDE SUSP 30 ML UDCUP PO PRN (09:59)
[2019-03-14] MEDS: FUROSEMIDE 40 MG TABLET PO SCH (10:00)
[2019-03-14] MEDS: CHLORHEXIDINE 0.12% ORAL RINSE 60 ML BOTTLE SWISH/SPIT SCH ×2 (10:01→21:30)
[2019-03-14] MEDS: INSULIN REGULAR 100 UNIT/ML SUBCUT SCH ×4 (10:02→21:30)
[2019-03-14] MEDS: POTASSIUM CHLORIDE 20 MEQ TABLET PO PRN ×2 (10:05→11:18)
[2019-03-14] MEDS: IMBRUVICA PO SCH (14:28)
[2019-03-14] MEDS: cloNIDine 0.1 MG TABLET PO SCH (21:25)
[2019-03-14] MEDS: SIMVASTATIN 40 MG TABLET PO SCH (21:25)
[2019-03-14] MEDS: ZALEPLON 5 MG CAPSULE PO PRN (21:25)
[2019-03-15 05:38] LABS: Basophils % 0.3 % (0.0-0.8); Eosinophils # 0.3 10*3/uL (0.0-0.87); Eosinophils % 2.3 % (0.00-10.9); Hematocrit 27.5 VOL% (35.7-47.0); Hemoglobin 8.8 GM/DL (12.0-16.0); Immature Granulocytes % 0.9 %; Immature Granulocytes Absolute 0.11 #; Lymphocytes # 2.8 10*3/uL (1.4-4.0); Lymphocytes % 23.5 % (21.3-54.2); Mean Platelet Volume 13.7 FL (9.6-12.0); Monocytes % 9.3 % (1.7-12.7); Neutrophils % 63.7 % (38.7-73.9); Platelet Count 171 T/CUMM (130-400); Red Blood Count 2.99 MC/CUMM (3.8-5.5); Red Cell Distribution Width 15.7 % (9.3-17.3); White Blood Count 11.9 T/CUMM (4-12)
[2019-03-15 06:00] LABS: Alanine Aminotransferase 29 U/L (13-56); Albumin 2.6 G/DL (3.4-5.0); Alkaline Phosphatase 81 U/L (45-117); Aspartate Amino Transferase 25 U/L (0-37); Bilirubin,Indirect 0.7 MG/DL (0.0-1.0); Blood Urea Nitrogen 62 MG/DL (7-18); Calcium 8.3 MG/DL (8.5-10.1); Glucose 148 MG/DL (74-106); Total Protein 6.1 G/DL (6.4-8.3)
[2019-03-15 06:02] LABS: Troponin I 0.243 NG/ML (0.00-0.045)
[2019-03-15] MEDS: sitaGLIPtin 100 MG TABLET PO SCH (09:34)
[2019-03-15] MEDS: ASPIRIN EC 325 MG TABLET PO SCH (09:34)
[2019-03-15] MEDS: ALLOPURINOL 300 MG TABLET PO SCH (09:34)
[2019-03-15] MEDS: LISINOPRIL 5 MG TABLET PO SCH (09:34)
[2019-03-15] MEDS: INSULIN REGULAR 100 UNIT/ML SUBCUT SCH ×4 (09:34→20:56)
[2019-03-15] MEDS: FUROSEMIDE 40 MG TABLET PO SCH (09:35)
[2019-03-15] MEDS: FERROUS SULFATE 325 MG TABLET PO SCH (09:35)
[2019-03-15] MEDS: PANTOPRAZOLE 40 MG TABLET PO SCH (09:35)
[2019-03-15] MEDS: ASCORBIC ACID 500 MG TABLET PO SCH ×2 (09:35→20:56)
[2019-03-15] MEDS: AMIODARONE 200 MG TABLET PO SCH ×2 (09:35→20:56)
[2019-03-15] MEDS: CARVEDILOL 3.125 MG TABLET PO SCH ×2 (09:35→20:56)
[2019-03-15] MEDS: DOCUSATE SODIUM 100 MG CAPSULE PO SCH (09:35)
[2019-03-15] MEDS: CHLORHEXIDINE 0.12% ORAL RINSE 60 ML BOTTLE SWISH/SPIT SCH ×2 (09:39→20:57)
[2019-03-15] MEDS: IMBRUVICA PO SCH (09:39)
[2019-03-15] MEDS: ALBUTEROL/IPRATROPIUM 3 ML NEB RESP TX SCH ×3 (11:01→18:57)
[2019-03-15] MEDS: SIMVASTATIN 40 MG TABLET PO SCH (20:55)
[2019-03-15] MEDS: cloNIDine 0.1 MG TABLET PO SCH (20:56)
[2019-03-15] MEDS: ZALEPLON 5 MG CAPSULE PO PRN (20:56)
[2019-03-16] MEDS: ALBUTEROL/IPRATROPIUM 3 ML NEB RESP TX SCH ×5 (00:12→21:20)
[2019-03-16 05:01] LABS: Basophils # 0.1 10*3/uL (0.0-0.2); Basophils % 0.5 % (0.0-0.8); Eosinophils # 0.4 10*3/uL (0.0-0.87); Eosinophils % 3.5 % (0.00-10.9); Hematocrit 28.9 VOL% (35.7-47.0); Hemoglobin 9.1 GM/DL (12.0-16.0); Immature Granulocytes % 1.3 %; Immature Granulocytes Absolute 0.16 #; Lymphocytes # 3.6 10*3/uL (1.4-4.0); Lymphocytes % 29.7 % (21.3-54.2); Mean Corpuscular HGB Conc 31.5 GM/DL (32-36); Mean Corpuscular Volume 91.7 FL (87-102); Mean Platelet Volume 13.5 FL (9.6-12.0); Monocytes % 10.2 % (1.7-12.7); NRBC # 0.02 10*3/uL; Neutrophils % 54.8 % (38.7-73.9); Platelet Count 195 T/CUMM (130-400); Red Blood Count 3.15 MC/CUMM (3.8-5.5); Red Cell Distribution Width 15.8 % (9.3-17.3); White Blood Count 12.1 T/CUMM (4-12)
[2019-03-16 05:23] LABS: Alanine Aminotransferase 29 U/L (13-56); Albumin 2.8 G/DL (3.4-5.0); Alkaline Phosphatase 79 U/L (45-117); Aspartate Amino Transferase 22 U/L (0-37); Bilirubin,Indirect 0.7 MG/DL (0.0-1.0); Blood Urea Nitrogen 57 MG/DL (7-18); Calcium 8.6 MG/DL (8.5-10.1); Glucose 120 MG/DL (74-106); Osmolality,Calculated 293.5 MOS/KG (273-304); Total Protein 6.5 G/DL (6.4-8.3)
[2019-03-16] MEDS: ASPIRIN EC 325 MG TABLET PO SCH (08:25)
[2019-03-16] MEDS: LISINOPRIL 5 MG TABLET PO SCH (08:25)
[2019-03-16] MEDS: DOCUSATE SODIUM 100 MG CAPSULE PO SCH (08:25)
[2019-03-16] MEDS: FUROSEMIDE 40 MG TABLET PO SCH (08:25)
[2019-03-16] MEDS: ASCORBIC ACID 500 MG TABLET PO SCH ×2 (08:25→23:18)
[2019-03-16] MEDS: ALLOPURINOL 300 MG TABLET PO SCH (08:26)
[2019-03-16] MEDS: CARVEDILOL 3.125 MG TABLET PO SCH ×2 (08:26→23:18)
[2019-03-16] MEDS: sitaGLIPtin 100 MG TABLET PO SCH (08:26)
[2019-03-16] MEDS: PANTOPRAZOLE 40 MG TABLET PO SCH (08:26)
[2019-03-16] MEDS: FERROUS SULFATE 325 MG TABLET PO SCH (08:26)
[2019-03-16] MEDS: AMIODARONE 200 MG TABLET PO SCH ×2 (08:27→23:18)
[2019-03-16] MEDS: IMBRUVICA PO SCH (08:28)
[2019-03-16] MEDS: INSULIN REGULAR 100 UNIT/ML SUBCUT SCH ×4 (08:31→23:19)
[2019-03-16] MEDS: CHLORHEXIDINE 0.12% ORAL RINSE 60 ML BOTTLE SWISH/SPIT SCH ×2 (09:40→23:21)
[2019-03-16] MEDS: SIMVASTATIN 40 MG TABLET PO SCH (23:18)
[2019-03-16] MEDS: cloNIDine 0.1 MG TABLET PO SCH (23:18)
[2019-03-16] MEDS: ZALEPLON 5 MG CAPSULE PO PRN (23:18)
[2019-03-16] MEDS: MAGNESIUM HYDROXIDE SUSP 30 ML UDCUP PO PRN (23:19)
[2019-03-17] MEDS: ALBUTEROL/IPRATROPIUM 3 ML NEB RESP TX SCH ×2 (03:30→07:07)
[2019-03-17 06:22] LABS: Basophils # 0.1 10*3/uL (0.0-0.2); Basophils % 0.6 % (0.0-0.8); Eosinophils # 0.3 10*3/uL (0.0-0.87); Eosinophils % 2.6 % (0.00-10.9); Hematocrit 34.1 VOL% (35.7-47.0); Immature Granulocytes % 1.4 %; Immature Granulocytes Absolute 0.15 #; Lymphocytes # 2.5 10*3/uL (1.4-4.0); Lymphocytes % 23.8 % (21.3-54.2); Mean Corpuscular HGB Conc 32.3 GM/DL (32-36); Mean Corpuscular Volume 89.3 FL (87-102); Monocytes % 9.2 % (1.7-12.7); NRBC # 0.04 10*3/uL; Neutrophils % 62.4 % (38.7-73.9); Platelet Count 176 T/CUMM (130-400); Red Blood Count 3.82 MC/CUMM (3.8-5.5); Red Cell Distribution Width 15.7 % (9.3-17.3); White Blood Count 10.6 T/CUMM (4-12)
[2019-03-17 06:40] LABS: Calcium 8.3 MG/DL (8.5-10.1); Osmolality,Calculated 291.5 MOS/KG (273-304)
[2019-03-17] MEDS: INSULIN REGULAR 100 UNIT/ML SUBCUT SCH ×4 (09:00→21:38)
[2019-03-17] MEDS: ASPIRIN EC 325 MG TABLET PO SCH (09:01)
[2019-03-17] MEDS: FERROUS SULFATE 325 MG TABLET PO SCH (09:01)
[2019-03-17] MEDS: ALLOPURINOL 300 MG TABLET PO SCH (09:01)
[2019-03-17] MEDS: CHLORHEXIDINE 0.12% ORAL RINSE 60 ML BOTTLE SWISH/SPIT SCH ×2 (09:01→21:38)
[2019-03-17] MEDS: ASCORBIC ACID 500 MG TABLET PO SCH ×2 (09:01→21:37)
[2019-03-17] MEDS: CARVEDILOL 3.125 MG TABLET PO SCH ×2 (09:01→21:37)
[2019-03-17] MEDS: FUROSEMIDE 40 MG TABLET PO SCH (09:01)
[2019-03-17] MEDS: LISINOPRIL 5 MG TABLET PO SCH (09:01)
[2019-03-17] MEDS: DOCUSATE SODIUM 100 MG CAPSULE PO SCH (09:01)
[2019-03-17] MEDS: sitaGLIPtin 100 MG TABLET PO SCH (09:01)
[2019-03-17] MEDS: AMIODARONE 200 MG TABLET PO SCH ×2 (09:01→21:37)
[2019-03-17] MEDS: PANTOPRAZOLE 40 MG TABLET PO SCH (09:01)
[2019-03-17] MEDS: IMBRUVICA PO SCH (09:05)
[2019-03-17] MEDS: APIXABAN 5 MG TABLET PO SCH ×2 (10:12→21:37)
[2019-03-17] MEDS: SIMVASTATIN 40 MG TABLET PO SCH (21:37)
[2019-03-17] MEDS: ZALEPLON 5 MG CAPSULE PO PRN (21:37)
[2019-03-17] MEDS: cloNIDine 0.1 MG TABLET PO SCH (21:37)
[2019-03-18 04:46] LABS: Basophils # 0.1 10*3/uL (0.0-0.2); Basophils % 0.4 % (0.0-0.8); Eosinophils # 0.4 10*3/uL (0.0-0.87); Eosinophils % 2.8 % (0.00-10.9); Hematocrit 27.2 VOL% (35.7-47.0); Hemoglobin 8.8 GM/DL (12.0-16.0); Immature Granulocytes % 2.1 %; Lymphocytes # 3.9 10*3/uL (1.4-4.0); Lymphocytes % 27.5 % (21.3-54.2); Mean Corpuscular HGB Conc 32.4 GM/DL (32-36); Mean Corpuscular Volume 89.5 FL (87-102); Mean Platelet Volume 13.2 FL (9.6-12.0); Monocytes % 9.3 % (1.7-12.7); Neutrophils % 57.9 % (38.7-73.9); Platelet Count 222 T/CUMM (130-400); Red Blood Count 3.04 MC/CUMM (3.8-5.5); Red Cell Distribution Width 15.5 % (9.3-17.3); White Blood Count 14.2 T/CUMM (4-12)
[2019-03-18 04:47] LABS: NRBC # 0.06 10*3/uL
[2019-03-18 04:55] LABS: Calcium 8.6 MG/DL (8.5-10.1)
[2019-03-18] MEDS: FERROUS SULFATE 325 MG TABLET PO SCH (10:06)
[2019-03-18] MEDS: ASCORBIC ACID 500 MG TABLET PO SCH ×2 (10:06→20:58)
[2019-03-18] MEDS: LISINOPRIL 5 MG TABLET PO SCH (10:07)
[2019-03-18] MEDS: FUROSEMIDE 40 MG TABLET PO SCH (10:07)
[2019-03-18] MEDS: sitaGLIPtin 100 MG TABLET PO SCH (10:07)
[2019-03-18] MEDS: DOCUSATE SODIUM 100 MG CAPSULE PO SCH (10:07)
[2019-03-18] MEDS: ALLOPURINOL 300 MG TABLET PO SCH (10:07)
[2019-03-18] MEDS: AMIODARONE 200 MG TABLET PO SCH ×2 (10:07→20:59)
[2019-03-18] MEDS: APIXABAN 5 MG TABLET PO SCH ×2 (10:07→20:58)
[2019-03-18] MEDS: ASPIRIN EC 325 MG TABLET PO SCH (10:07)
[2019-03-18] MEDS: PANTOPRAZOLE 40 MG TABLET PO SCH (10:07)
[2019-03-18] MEDS: CARVEDILOL 3.125 MG TABLET PO SCH ×2 (10:07→20:58)
[2019-03-18] MEDS: IMBRUVICA PO SCH (10:11)
[2019-03-18] MEDS: INSULIN REGULAR 100 UNIT/ML SUBCUT SCH ×4 (10:12→21:10)
[2019-03-18] MEDS: CHLORHEXIDINE 0.12% ORAL RINSE 60 ML BOTTLE SWISH/SPIT SCH ×2 (10:21→20:59)
[2019-03-18] MEDS: SIMVASTATIN 40 MG TABLET PO SCH (20:58)
[2019-03-18] MEDS: cloNIDine 0.1 MG TABLET PO SCH (20:59)
[2019-03-19 04:40] LABS: Basophils % 0.3 % (0.0-0.8); Eosinophils # 0.3 10*3/uL (0.0-0.87); Eosinophils % 2.3 % (0.00-10.9); Hematocrit 26.4 VOL% (35.7-47.0); Hemoglobin 8.5 GM/DL (12.0-16.0); Immature Granulocytes % 1.9 %; Immature Granulocytes Absolute 0.24 #; Lymphocytes # 3.5 10*3/uL (1.4-4.0); Lymphocytes % 27.2 % (21.3-54.2); Mean Corpuscular HGB Conc 32.2 GM/DL (32-36); Mean Corpuscular Volume 90.4 FL (87-102); Mean Platelet Volume 12.8 FL (9.6-12.0); Monocytes % 8.7 % (1.7-12.7); NRBC # 0.06 10*3/uL; Neutrophils % 59.6 % (38.7-73.9); Platelet Count 219 T/CUMM (130-400); Red Blood Count 2.92 MC/CUMM (3.8-5.5); Red Cell Distribution Width 15.6 % (9.3-17.3); White Blood Count 12.9 T/CUMM (4-12)
[2019-03-19 05:13] LABS: Calcium 8.4 MG/DL (8.5-10.1); Osmolality,Calculated 285.7 MOS/KG (273-304)
[2019-03-19] MEDS: INSULIN REGULAR 100 UNIT/ML SUBCUT SCH ×4 (08:13→21:20)
[2019-03-19] MEDS: FERROUS SULFATE 325 MG TABLET PO SCH (08:19)
[2019-03-19] MEDS: ASCORBIC ACID 500 MG TABLET PO SCH ×2 (08:19→20:51)
[2019-03-19] MEDS: sitaGLIPtin 100 MG TABLET PO SCH (08:19)
[2019-03-19] MEDS: AMIODARONE 200 MG TABLET PO SCH ×2 (08:19→20:51)
[2019-03-19] MEDS: LISINOPRIL 5 MG TABLET PO SCH (08:19)
[2019-03-19] MEDS: ALLOPURINOL 300 MG TABLET PO SCH (08:19)
[2019-03-19] MEDS: FUROSEMIDE 40 MG TABLET PO SCH (08:19)
[2019-03-19] MEDS: CARVEDILOL 3.125 MG TABLET PO SCH ×2 (08:19→20:51)
[2019-03-19] MEDS: PANTOPRAZOLE 40 MG TABLET PO SCH (08:20)
[2019-03-19] MEDS: ASPIRIN EC 325 MG TABLET PO SCH (08:20)
[2019-03-19] MEDS: APIXABAN 5 MG TABLET PO SCH ×2 (08:20→20:51)
[2019-03-19] MEDS: DOCUSATE SODIUM 100 MG CAPSULE PO SCH (08:20)
[2019-03-19] MEDS: CHLORHEXIDINE 0.12% ORAL RINSE 60 ML BOTTLE SWISH/SPIT SCH ×2 (08:20→20:54)
[2019-03-19] MEDS: IMBRUVICA PO SCH (08:20)
[2019-03-19] MEDS: cloNIDine 0.1 MG TABLET PO SCH (20:51)
[2019-03-19] MEDS: SIMVASTATIN 40 MG TABLET PO SCH (21:02)
[2019-03-19] MEDS: MAGNESIUM HYDROXIDE SUSP 30 ML UDCUP PO PRN (21:02)
[2019-03-20] MEDS: INSULIN REGULAR 100 UNIT/ML SUBCUT SCH ×4 (08:28→21:18)
[2019-03-20] MEDS: APIXABAN 5 MG TABLET PO SCH ×2 (08:54→20:36)
[2019-03-20] MEDS: LISINOPRIL 5 MG TABLET PO SCH (08:54)
[2019-03-20] MEDS: ASPIRIN EC 325 MG TABLET PO SCH (08:54)
[2019-03-20] MEDS: ALLOPURINOL 300 MG TABLET PO SCH (08:55)
[2019-03-20] MEDS: CARVEDILOL 3.125 MG TABLET PO SCH ×2 (08:55→20:36)
[2019-03-20] MEDS: AMIODARONE 200 MG TABLET PO SCH ×2 (08:55→20:36)
[2019-03-20] MEDS: FUROSEMIDE 40 MG TABLET PO SCH (08:55)
[2019-03-20] MEDS: ASCORBIC ACID 500 MG TABLET PO SCH ×2 (08:55→20:35)
[2019-03-20] MEDS: PANTOPRAZOLE 40 MG TABLET PO SCH (08:55)
[2019-03-20] MEDS: FERROUS SULFATE 325 MG TABLET PO SCH (08:55)
[2019-03-20] MEDS: sitaGLIPtin 100 MG TABLET PO SCH (08:55)
[2019-03-20] MEDS: DOCUSATE SODIUM 100 MG CAPSULE PO SCH (08:55)
[2019-03-20] MEDS: CHLORHEXIDINE 0.12% ORAL RINSE 60 ML BOTTLE SWISH/SPIT SCH ×2 (09:00→20:36)
[2019-03-20] MEDS: IMBRUVICA PO SCH (09:00)
[2019-03-20] MEDS: SIMVASTATIN 40 MG TABLET PO SCH (20:35)
[2019-03-20] MEDS: cloNIDine 0.1 MG TABLET PO SCH (20:36)
[2019-03-21] MEDS: LISINOPRIL 5 MG TABLET PO SCH (08:13)
[2019-03-21] MEDS: CARVEDILOL 3.125 MG TABLET PO SCH (08:14)
[2019-03-21] MEDS: sitaGLIPtin 100 MG TABLET PO SCH (08:14)
[2019-03-21] MEDS: ASCORBIC ACID 500 MG TABLET PO SCH (08:14)
[2019-03-21] MEDS: ALLOPURINOL 300 MG TABLET PO SCH (08:14)
[2019-03-21] MEDS: ASPIRIN EC 325 MG TABLET PO SCH (08:14)
[2019-03-21] MEDS: DOCUSATE SODIUM 100 MG CAPSULE PO SCH (08:14)
[2019-03-21] MEDS: FERROUS SULFATE 325 MG TABLET PO SCH (08:14)
[2019-03-21] MEDS: APIXABAN 5 MG TABLET PO SCH (08:14)
[2019-03-21] MEDS: AMIODARONE 200 MG TABLET PO SCH (08:15)
[2019-03-21] MEDS: PANTOPRAZOLE 40 MG TABLET PO SCH (08:15)
[2019-03-21] MEDS: FUROSEMIDE 40 MG TABLET PO SCH (08:15)
[2019-03-21] MEDS: IMBRUVICA PO SCH (08:16)
[2019-03-21] MEDS: CHLORHEXIDINE 0.12% ORAL RINSE 60 ML BOTTLE SWISH/SPIT SCH (08:19)
[2019-03-21] MEDS: INSULIN REGULAR 100 UNIT/ML SUBCUT SCH ×2 (08:23→14:29)
[2019-03-21 12:04] VITALS: BP 106/61
== END 2019-03-21 15:19 | disposition home health service (06) | DRG 233 ==
LOC: N.EDINP 10:02 → N.ED 10:02 → N.TELEN 15:01 → SUATTDRO 03-04 09:26 → N.CVR 03-10 08:04 → N.ICU 03-11 09:38 → N.TELES 03-11 14:33
PROVIDERS: ADMIT Internal Medicine Geriatric Medicine; ATTEND Internal Medicine
PROC: CLCCHCL (ICD-10-PCS; 2019-03-04 16:15)